=== PATIENT | female | born 1960 | race American Indian/Alaskan Native ===

== ENCOUNTER 2018-12-25 14:45 | Outpatient (CLI) | payer OTHER | END 2018-12-25 14:46 | disposition home or self-care (01) | LOC: RAD 14:45 ==

== ENCOUNTER 2019-01-01 10:49 | Outpatient (CLI) | payer SELFPAY | END 2019-01-01 10:50 | disposition home or self-care (01) | LOC: CARDIO 10:49 ==

== ENCOUNTER 2019-03-05 07:16 | Outpatient (CLI) | payer SELFPAY | END 2019-03-05 07:17 | disposition home or self-care (01) | LOC: CARDIO 07:16 ==